=== PATIENT | male | born 1950 | race Hispanic/Latino ===

== ENCOUNTER → 2022-02-11 | Outpatient (CLI) | payer MEDICARE, SELFPAY ==
--- NOTE | 2022-02-11 11:05 | RAD_ITS ---
STUDY: X-RAY - LEFT WRIST REASON FOR EXAM: Male, 71 years old. Bilateral wrist pain. TECHNIQUE: 3 view(s) of the wrist were obtained. COMPARISON: None. FINDINGS: Osteopenia. Marked arthrosis of the radiocarpal articulation with near complete loss of articular cartilage and subchondral cyst formation. Mild arthrosis of the distal radioulnar joint. Cystic change in the capitate. Moderate arthrosis of the radial carpal row of the wrist. Moderate to marked arthrosis of the first CMC joint. The soft tissue structures are unremarkable. RAD/Wrist min 3 Views IMPRESSION: Osteopenia with osteoarthritic changes as described. No acute abnormality, chondrocalcinosis, erosive changes or periostitis. Electronically Signed: Teddy Aldana MD at 11:54 EDT ,
--- NOTE | 2022-02-11 11:05 | RAD_ITS ---
STUDY: X-RAY - RIGHT WRIST REASON FOR EXAM: Male, 71 years old. Pain. TECHNIQUE: 3 view(s) of the wrist were obtained. COMPARISON: None. FINDINGS: Osteopenia. Marked arthrosis of the radiocarpal articulation with cystic changes in the distal radius and proximal carpal row. Mild arthrosis of the distal radial ulnar joint. Moderate arthrosis of the radial carpal row of the wrist. Moderate arthrosis of the first CMC joint. The soft tissue structures are unremarkable. RAD/Wrist min 3 Views IMPRESSION: Osteopenia with diffuse moderate to marked osteoarthrosis as described. No acute abnormality, chondrocalcinosis, erosive changes or periostitis. Electronically Signed: Teddy Aldana MD at 11:55 EDT ,
== END | disposition home or self-care (01) ==
PROVIDERS: Referring Provider Internal Medicine; Visit Provider Internal Medicine
DX: M25.531 Pain in right wrist (principal); M25.532 Pain in left wrist
CPT/HCPCS: 73110

== ENCOUNTER → 2022-04-02 | Outpatient (CLI) | payer MEDICARE, SELFPAY ==
--- NOTE | 2022-04-02 08:43 | US_ITS ---
STUDY: ABDOMINAL ULTRASOUND - RIGHT UPPER QUADRANT REASON FOR VISIT: Male, 71 years old ELEVATED LIVER FX TEST TECHNIQUE: Ultrasound evaluation of the right upper quadrant was performed with real-time and static carrillo-scale imaging. TECHNICAL QUALITY: Adequate. COMPARISON: None. FINDINGS: Liver: The liver measures 13.1 cm. There is a heterogeneous echogenicity of the liver. The bile ducts are within normal limits. There is hepatic color flow. The direction of portal flow is hepatopetal. In the left lobe of liver, there is a hypoechoic solid nodule measuring 2.3 centers by 2.2 cm x 3.2 cm there is also evidence of a slightly echogenic nodule measuring 9 mm x 6 mm x 5 mm. And dome of the right lobe of the liver, is a 1 cm x 0.9 cm x 0.7 cm hypoechoic nodule. There is also evidence of a complex solid and cystic nodule measuring 2 cm x 1.87 x 1.9 cm adjacent to the gallbladder. There is also evidence of a 1.8 cm x 2.1 cm x 1.9 cm hyperechoic solid nodule in the inferior aspect of the right lobe of liver. Correlation with a CT scan is recommended for further evaluation. Gallbladder: Normal distended gallbladder. The gallbladder wall measures 1.8 mm. There is a negative sonographic Larios''s sign. There is no pericholecystic fluid. There are no gallstones. Common Bile Duct (C.B.D.): The common bile duct measures 2.5 mm. Pancreas: Normal size of the head, body and tail of the pancreas. There is normal echogenicity of the pancreas. There is no demonstrated pancreatic mass or cyst. Right Kidney: Normal size of the right kidney. The right kidney measures 10.4 cm x 5.5 cm x 5.4 cm. Normal renal cortex. The right cortex measures 1.4 cm. There is a 2 cm x 2.3 cm x 1.7 is some cystic lateral aspect of the right kidney. There is no right hydronephrosis. US/Liver IMPRESSION: Heterogeneous appearance of the liver as described. Multiple nodules in both lobes as described. Correlation with a CT scan of the abdomen and pelvis is recommended. Electronically Signed: Radames Vallecillo MD at 11:12 EDT ,
== END | disposition home or self-care (01) ==
LOC: US 08:41
PROVIDERS: Referring Provider Internal Medicine; Visit Provider Internal Medicine
DX: R79.89 Other specified abnormal findings of blood chemistry (principal)
CPT/HCPCS: 76705

== ENCOUNTER → 2022-04-09 | Outpatient (CLI) | payer MEDICARE, SELFPAY ==
--- NOTE | 2022-04-09 07:22 | CT_ITS ---
STUDY: CT ABDOMEN AND PELVIS WITH CONTRAST REASON FOR EXAM: Male, 71 years old. Multiple nodules seen in the liver on recent ultrasound. The patient has a history of osteosarcoma. RADIATION DOSAGE (If Supplied By Facility): CTDIvol = ( 10.42 ) mGy, DLP = ( 916.02 ) mGycm TECHNIQUE: Transaxial images were obtained from the dome of the diaphragm to the symphysis pubis without oral contrast. Oral and amp; IV Readi-CAT and amp; 100mL Isovue-300 was administered. Sagittal and coronal images were reconstructed. Individualized dose optimization techniques were used for this CT. COMPARISON: None. FINDINGS: The visualized lung bases are unremarkable. Coronary artery calcification. There is decreased attenuation of the liver consistent with steatosis. There is a 2.8 cm x 2.1 cm hypodense nodule in the dome of the right lobe of the liver with peripheral vascularity which fills in on delayed imaging suggestive of hemangioma. There is also evidence of a 2.1 cm x 1.3 cm enhancing nodule in the peripheral medial aspect of the right lobe of the liver inferiorly. On the delayed images, this becomes isodense with the surrounding liver. This may represent an hemangioma. Normal gallbladder and extrahepatic biliary system. Normal spleen. Normal pancreas. Normal bilateral adrenal glands. There is a 2 cm cyst in the posterior midportion of the right kidney. Normal left kidney. Normal visualized stomach. Normal small intestine. There are multiple colonic diverticula consistent with diverticulosis. The appendix is visualized and appears normal. Normal abdominal aorta. Normal inferior vena cava. Normal retroperitoneum. Normal urinary bladder. There is heterogeneous enlargement of the prostate with indentation of the bladder base. The prostate measures 5.7 sinus by 4.4 cm. There is a small umbilical hernia containing fat. Normal osseous structures. CT/Abdomen/Pelvis WITH Contrast IMPRESSION: Diffuse fatty infiltration of the liver. 2. Nodular densities are seen in the liver as described suggestive of a hemangioma. Right renal cyst. Heterogeneous enlargement of the prostate Electronically Signed: Radames Vallecillo MD at 8:38 EDT ,
[2022-04-09 08:05] LABS: CREATININE FINGERSTICK < 0.9 mg/dL (0.70-1.30); EGFR FINGERSTICK > 60.0000 mL/min (>60)
== END | disposition home or self-care (01) ==
LOC: CT 07:18
PROVIDERS: PCP Internal Medicine; Referring Provider Internal Medicine; Visit Provider Internal Medicine
DX: R93.2 Abnormal findings on diagnostic imaging of liver and biliary tract (principal)
CPT/HCPCS: 74177; Q9967

== ENCOUNTER → 2023-01-21 | Outpatient (CLI) | payer MEDICARE, SELFPAY ==
--- NOTE | 2023-01-21 06:55 | ECHOD_ITS ---
Reason For Study: EDWARDS Procedure This was a 2D Doppler, Color Flow transthoracic echocardiogram. Exam performed in department. Left Ventricle Normal LV size. Mild concentric left ventricular hypertrophy. Apical false tendon noted. The left ventricular ejection fraction is 60 %. Normal diastology for age. Right Ventricle Normal right ventricle. Atria The left and right atria are normal. Mitral Valve The mitral valve is structurally normal. No prolapse or stenosis seen. Tricuspid Valve Mild tricuspid valve insufficiency. Normal pulmonary artery pressure. Aortic Valve Normal aortic valve. Pulmonic Valve The pulmonic valve is not well visualized. Great Vessels Normal sized aortic root. Pericardium/Pleural No pericardial effusion. MMode/2D Measurements & Calculations LVIDd: 4.6 cm IVSd: 0.91 cm Ao root diam: 2.8 cm LVIDs: 3.0 cm LVPWd: 0.97 cm RVDd: 3.1 cm FS: 33.8 % LAV(MOD-bp): 50.8 ml LVAd ap4: 26.5 cm2 LVAd ap2: 20.1 cm2 LAV(MOD-bp) Indexed: 30.1 ml/m2 LVLd ap4: 7.8 cm LVLd ap2: 6.7 cm LAV(MOD-sp2): 48.6 ml EDV(MOD-sp4): 77.0 ml EDV(MOD-sp2): 49.1 ml LAV(MOD-sp4): 50.0 ml EDV(sp4-el): 76.0 ml EDV(sp2-el): 51.2 ml LVAs ap4: 17.5 cm2 LVAs ap2: 11.4 cm2 LVLs ap4: 7.0 cm LVLs ap2: 5.1 cm ESV(MOD-sp4): 38.9 ml ESV(MOD-sp2): 21.5 ml ESV(sp4-el): 37.1 ml ESV(sp2-el): 21.5 ml EF(MOD-sp4): 49.4 % EF(MOD-sp2): 56.2 % EF(sp4-el): 51.2 % SV(MOD-sp4): 38.1 ml SV(MOD-sp2): 27.6 ml SV(sp4-el): 39.0 ml LA dimension(2D): 3.5 cm LA A4 area: 18.5 cm2 RA A4 area: 14.2 cm2 Time Measurements MV dec time: 0.18 sec Doppler Measurements & Calculations MV E max servando: 76.3 cm/sec Lat Peak E' Servando: 10.4 cm/sec Med Peak E' Servando: 7.6 cm/sec MV A max servando: 51.4 cm/sec E/E' lat: 7.4 E/E' med: 10.0 MV E/A: 1.5 Ao V2 max: 111.1 cm/sec LV V1 max: 108.8 cm/sec PA V2 max: 98.3 cm/sec Ao max P.9 mmHg LV V1 max P.7 mmHg PA V2 mean: 66.8 cm/sec Ao V2 mean: 70.3 cm/sec LV V1 mean P.3 mmHg Ao mean P.4 mmHg LV V1 mean: 69.2 cm/sec Ao V2 VTI: 24.1 cm LV V1 VTI: 22.9 cm AV (velocity ratio): 0.95 TR max servando: 240.1 cm/sec TR max P.1 mmHg ECHO/Echo Complete Interpretation Summary Mild concentric left ventricular hypertrophy. The left ventricular ejection fraction is 60 %. Ordering Physician: Dawna Thorne Referring Physician: Dawna Thorne Performed By: Ade Welsh, DLEMA, RVT
--- NOTE | 2023-01-21 13:11 | STRESSREP ---
Stress Test Report Date: 01/21/2023 Procedure: Exercise tolerance test/imaging study Indications: Dyspnea on exertion Consent: Per the patient Procedure: The patient exercised on a Imtiaz protocol for 4 minutes and 10 seconds achieving a peak heart rate of 151 bpm (103% predicted maximal heart rate) with a peak blood pressure 142/70 mmHg and a peak MET capacity of 7.0 METs. The baseline ECG demonstrated normal sinus rhythm with right bundle branch block. The peak exercise ECG demonstrated no ischemic changes. PACs were noted during exercise and in recovery. The functional capacity was considered suboptimal. There was complaints of shortness of breath and leg discomfort with exercise. The examination was discontinued secondary to target heart rate being achieved. The patient was injected with 11.8 mCi of technetium 99m Cardiolite and subsequently rest SPECT Cardiolite nuclear imaging was obtained in the horizontal long, vertical long, and short axis views. Post-exercise, the patient was injected with 33.9 mCi of technetium 99m Cardiolite and subsequently stress SPECT Cardiolite nuclear imaging was obtained in the horizontal long, vertical long, and short axis views. A gated Cardiolite study at peak stress was obtained. Rest and stress SPECT Cardiolite nuclear imaging status post realignment, normalization, and attenuation correction, demonstrates mild reversible perfusion defect of the apex. There is end systolic thickening and brightening. The gated Cardiolite study demonstrates myocardial thickening and inward wall motion. The reported LVEF is 59%. Impression: 1. Technically adequate (percent predicted maximal heart rate greater than 85%) exercise tolerance test 2. Peak exercise ECG with no ischemic changes 3. Few PACs noted with exercise and in recovery 4. Rest and stress SPECT Cardiolite nuclear imaging demonstrate a reversible small apical defect of mild intensity. 5. The gated Cardiolite study reports an LVEF of 59%. This note was generated with [employer] software. It may contain incorrect words, spelling, and punctuation that were not noted in checking the note before signing.
== END | disposition home or self-care (01) ==
PROVIDERS: PCP Internal Medicine; Referring Provider Internal Medicine; Visit Provider Internal Medicine
DX: M85.80 Other specified disorders of bone density and structure, unspecified site (principal); R94.31 Abnormal electrocardiogram [ECG] [EKG]; K76.0 Fatty (change of) liver, not elsewhere classified; R06.09 Other forms of dyspnea
CPT/HCPCS: 78452; 93017; 93306; A9500; A4216

== ENCOUNTER → 2023-02-05 | Outpatient (CLI) | payer MEDICARE, SELFPAY ==
--- NOTE | 2023-02-05 16:45 | RAD_ITS ---
EXAM: XR CHEST, 2 VIEWS CLINICAL INDICATION: sob TECHNIQUE: Frontal and lateral views of the chest. COMPARISON: July 03, 2022. FINDINGS: LUNGS AND PLEURAL SPACES: Unremarkable. No consolidation or edema. No pneumothorax. No effusion. HEART: Unremarkable. Cardiac silhouette not enlarged. MEDIASTINUM: Central airways and mediastinal contour are unremarkable. BONES/JOINTS: Degenerative changes of the spine and acromioclavicular joints. Diffuse osteopenia. SOFT TISSUES: Unremarkable. TUBES, LINES AND DEVICES: Right chest port in place. RAD/Chest PA and Lateral IMPRESSION: No acute disease. Electronically Signed: Jesse Cat MD at 22:41 EDT ,
[2023-02-05 16:55] LABS: Absolute Lymphocyte Count 1.82 X10^3/uL (0.83-4.51); Absolute Neutrophil Count 4.1 X10^3/uL (2.0-7.7); Basophil# 0.04 X10^3/uL; Basophil% 0.6 % (0-1); Eosinophil# 0.13 X10^3/uL; Eosinophils% 1.9 % (0-5); Hematocrit 45.4 % (40-54); Lymphocyte # 1.82 X10^3/ul (0.83-4.51); Lymphocyte % 26.6 % (19-41); Mean Corpuscular Hgb 31.2 pg (27.0-32.0); Mean Corpuscular Volume 94.4 fL (80-94); Mean Platelet Vol. 11.5 fl (6.2-12.0); Monocyte# 0.72 X10^3/uL; Monocyte% 10.5 % (0-10); NRBC Flagged by Analyzer 0 % (0-5); Neutrophil # 4.13 X10^3/uL (2.7-7.7); Neutrophil % 60.3 % (47-70); Platelet Count 302 K/mm3 (150-450); RBC Distribution Width CV 13.7 % (11.6-14.6); RBC Distribution Width SD 47.9 fl (35.1-43.9); Red Blood Count 4.81 M/mm3 (4.6-6.2); White Blood Count 6.9 K/mm3 (4.4-11.0)
[2023-02-05 17:53] LABS: Anion Gap 5 (5-15); BUN 17 mg/dL (7-18); BUN/Creat Ratio 25.9 RATIO (10-20); Calcium,Total 9.6 mg/dL (8.5-10.1); Chloride 109 mmol/L (98-107); Creatinine, Serum 0.66 mg/dL (0.70-1.30); EST Glomerular Filtration Rate 126 mL/min (>60); Est Glom Filt Rate - Afr Amer 152 mL/min (>60); Glucose 101 mg/dL (74-106); Potassium 4.7 mmol/L (3.5-5.1); Sodium Level 140 mmol/L (136-145)
== END | disposition home or self-care (01) ==
LOC: LAB 16:35
PROVIDERS: PCP Internal Medicine; Referring Provider Internal Medicine Cardiovascular Disease; Visit Provider Internal Medicine Cardiovascular Disease
DX: R06.09 Other forms of dyspnea (principal); R94.39 Abnormal result of other cardiovascular function study
CPT/HCPCS: 36415; 71046; 80048; 85025

== ENCOUNTER → 2023-06-17 | Outpatient (CLI) | payer MEDICARE, SELFPAY ==
--- NOTE | 2023-06-17 09:48 | US_ITS ---
STUDY: ABDOMINAL ULTRASOUND - RIGHT UPPER QUADRANT; ELASTOGRAPHY REASON FOR VISIT: Male, 72 years old. Fatty infiltration of the liver. History of osteosarcoma. TECHNIQUE: Ultrasound evaluation of the right upper quadrant was performed with real-time and static carrillo-scale imaging. Point quantification shear wave elastography was performed ([employer]). TECHNICAL QUALITY: Adequate. COMPARISON: Comparison is made with prior sonogram of the abdomen dated April 02, [address] scan of the abdomen dated April 09, 2022. FINDINGS: Liver: The liver measures 13.5 cm. There is increased echogenicity consistent with fatty infiltration. Once again, there is a heterogeneous appearance of the liver with several hypoechoic solid nodules scattered throughout. This is essentially unchanged. The bile ducts are within normal limits. There is hepatic color flow. The direction of portal flow is hepatopetal. Median liver stiffness measured 9.5 kPa. Gallbladder: Normal distended gallbladder. The gallbladder wall measures 1.8 mm. There is a negative sonographic Larios''s sign. There is no pericholecystic fluid. There are no gallstones. Common Bile Duct (C.B.D.): The common bile duct measures 4.1 mm. Pancreas: There is normal echogenicity of the visualized pancreas. There is no demonstrated pancreatic mass or cyst. Right Kidney: Normal size of the right kidney. The right kidney measures 9.9 cm x 5.2 cm x 5.1 cm. Normal renal cortex. The right cortex measures 1.4 cm. There is a 2 cm x 2.17 x 1.8 cm cyst in the upper pole. There is no right hydronephrosis. US/Abdomen Limited IMPRESSION: 1. Liver stiffness measures 9.5 kPa compatible with F2-F3 (Mild to moderate liver fibrosis) Metavir score. Electronically Signed: Radames Vallecillo MD at 14:30 EDT ,
== END | disposition home or self-care (01) ==
LOC: US 09:39
PROVIDERS: PCP Internal Medicine; Referring Provider Internal Medicine; Visit Provider Internal Medicine
DX: K76.0 Fatty (change of) liver, not elsewhere classified (principal)
CPT/HCPCS: 76705; 76981